=== PATIENT | female | born 1990 | race Caucasian/White ===

== ENCOUNTER 2022-03-04 19:19 | Emergency (ER) | payer MEDICAID ==
[~2022-03-04] VITALS: Ht 157.5 cm; Wt 69.8 kg
[2022-03-04 19:42] VITALS: BP 123/66
[2022-03-04] MEDS ORDERED: IBUP-2028 MT (21:34)
[2022-03-04] MEDS ORDERED: AMOX1TAB16 MT (21:34)
[2022-03-04] MEDS ORDERED: TOPUD PO (21:34)
[2022-03-04] MEDS ORDERED: ACETAMINOPHEN 325MG TABLET PO ONE (21:45)
[2022-03-04] MEDS ORDERED: IBUPROFEN 400MG TABLET PO ONE (21:45)
[2022-03-04] MEDS ORDERED: AMOXICILLIN/POTASSIUM CLAVULANATE 875/125MG TAB PO ONE (21:45)
== END 2022-03-04 22:00 | disposition home or self-care (01) ==
LOC: ER 19:19
DX: K03.81 Cracked tooth (principal); J45.909 Unspecified asthma, uncomplicated; E78.00 Pure hypercholesterolemia, unspecified; Z91.013 Allergy to seafood
CPT/HCPCS: 99284

== ENCOUNTER 2022-05-01 02:12 | Emergency (ER) | payer MEDICAID ==
[~2022-05-01] VITALS: Ht 157.5 cm; Wt 88.0 kg
[~2022-05-01 02:12] MED LIST: AMOX1TAB16 MT; IBUP-2028 MT; TOPUD PO
[2022-05-01 04:00] VITALS: BP 147/96
[2022-05-01] MEDS ORDERED: HYDROCODONE/ACETAMINOPHEN 5/325MG TABLET PO ONE (04:00)
[2022-05-01] MEDS ORDERED: HYDR-4001 MT (04:06)
[2022-05-01] MEDS ORDERED: CLIN-194 MT (04:06)
== END 2022-05-01 04:20 | disposition home or self-care (01) ==
LOC: ER 02:12
DX: K04.7 Periapical abscess without sinus (principal); J45.909 Unspecified asthma, uncomplicated; E78.00 Pure hypercholesterolemia, unspecified
CPT/HCPCS: 99283